=== PATIENT | female | born 1960 | race African-American/Black ===

== ENCOUNTER → 2016-08-12 | Outpatient (CLI) | payer OTHER ==
[~2016-08-12] MED LIST: NAPROSYN500 MG PO; ULTRAM 50MG TAB50 MG PO
== END ==
LOC: RAD 14:12
DX: M79.641 Pain in right hand (principal); Z91.81 History of falling

== ENCOUNTER → 2016-09-23 | Outpatient (CLI) | payer OTHER | LOC: RAD 08:15 | DX: Z12.31 Encounter for screening mammogram for malignant neoplasm of breast (principal) ==

== ENCOUNTER → 2016-10-06 | Outpatient (CLI) | payer OTHER | LOC: RAD 14:34 | DX: R92.8 Other abnormal and inconclusive findings on diagnostic imaging of breast (principal) ==

== ENCOUNTER → 2016-10-29 | Outpatient (CLI) | payer OTHER ==
--- NOTE | ~2016-10-29 | S ---
[facility] [place] [address] SURGICAL PATH RPT PROCEDURE Name: NADEEN JONES Room #: [facility]#: [id number] Admission: 10/29/16 Date of : 56 Discharge: Report #: [id number] Path Case #: [id number] PATHOLOGY REPORT COLLECTION DATE: 10/29/2016 RECEIVED DATE: 10/29/2016 SUBMITTING PHYS: Dr. Lavon Reddy OTHER PHYS: SPECIMEN(S) RECEIVED: A.Left breast biopsy * * * * * * * * * * * * FINAL DIAGNOSIS: Breast, left breast nodule, stereotactic needle core biopsy: - Cystic papillary apocrine metaplasia along with proliferative fibrocystic changes including dilated ducts as well as focal adenosis. - Negative for atypia or malignancy. (IUV:[facility]; 11/01/2016) COMMENT: Co-review: Dr. Marycruz Sam. (IUV:koby; 11/01/2016) PATHOLOGIST: Lorie Tim M.D. REPORT ELECTRONICALLY SIGNED BY: Lorie Tim M.D. DATE/TIME: 11/01/2016 16:50 * * * * * * * * * * * * GROSS PATHOLOGY: Received in formalin labeled "Nadeen Coles," and additionally labeled on the requisition as "left stereotactic biopsy 11 GA" are multiple needle cores of yellow-madrid fibrofatty tissue measuring 2.9 x 4.2 x 0.4 cm in aggregate dimensions. The tissue is submitted in its entirety in cassette A1 through A3. The specimen was collected at 10:05 AM on 10/29/16. The time formalin is 9:50 PM, 10/29/16. The cold ischemic time and total formalin fixation time are not available. (TSD; 10/29/2016) CLINICAL HISTORY: Left breast nodule INITIAL CPT CODE(S): A; 62963 Professional services performed by [facility] at [address] [address] SURGICAL PATH RPT PROCEDURE Name: NADEEN JONES Room #: [facility].#: [id number] Admission: 10/29/16 Date of : 56 Discharge: Report #: [id number] Path Case #: [id number] , [place] [address] Technical services performed by [facility] at [address] [place] [address], [facility] [address] [address]. [facility] [address] [place] [address] PHONE: [phone] DIRECTOR: Geoff Roque M.D. * * * END OF REPORT * * *
== END | disposition home or self-care (01) ==
LOC: RAD 01:13
DX: N60.12 Diffuse cystic mastopathy of left breast (principal); Z88.0 Allergy status to penicillin; Z88.6 Allergy status to analgesic agent

== ENCOUNTER 2017-02-15 13:08 | Emergency (ER) | payer OTHER ==
[~2017-02-15] VITALS: Ht 175.3 cm; Wt 124.7 kg
[2017-02-15] MEDS ORDERED: IBUPROFEN 600600 M1 PO (14:55)
[2017-02-15 15:22] VITALS: BP 194/102
== END 2017-02-15 15:25 | disposition home or self-care (01) ==
LOC: ER 13:08
DX: S80.02XA Contusion of left knee, initial encounter (principal); S60.211A Contusion of right wrist, initial encounter; S50.312A Abrasion of left elbow, initial encounter; S50.311A Abrasion of right elbow, initial encounter; Z88.0 Allergy status to penicillin; Z88.5 Allergy status to narcotic agent; W01.0XXA Fall on same level from slipping, tripping and stumbling without subsequent striking against object, initial encounter; Y93.89 Activity, other specified; Y92.89 Other specified places as the place of occurrence of the external cause; Y99.8 Other external cause status

== ENCOUNTER → 2017-03-22 | Outpatient (CLI) | payer BC ==
[~2017-03-22] MED LIST changes: +IBUPROFEN 600600 M1 PO
== END ==
LOC: ULTRA 07:27
DX: I65.23 Occlusion and stenosis of bilateral carotid arteries (principal); R09.89 Other specified symptoms and signs involving the circulatory and respiratory systems

== ENCOUNTER → 2017-05-16 | Outpatient (CLI) | payer OTHER | LOC: MRI 08:02 | DX: M47.26 Other spondylosis with radiculopathy, lumbar region (principal); M48.061 Spinal stenosis, lumbar region without neurogenic claudication ==

== ENCOUNTER → 2017-05-18 | Outpatient (CLI) | payer BC | LOC: RAD 14:21 | DX: R92.8 Other abnormal and inconclusive findings on diagnostic imaging of breast (principal) ==

== ENCOUNTER → 2017-06-02 | Outpatient (CLI) | payer BC | LOC: MRI 12:21 | DX: I70.8 Atherosclerosis of other arteries (principal); E04.1 Nontoxic single thyroid nodule; M25.512 Pain in left shoulder; R09.89 Other specified symptoms and signs involving the circulatory and respiratory systems ==

== ENCOUNTER → 2017-09-27 | Outpatient (CLI) | payer BC, OTHER | LOC: RAD 14:02 | DX: Z12.31 Encounter for screening mammogram for malignant neoplasm of breast (principal) ==

== ENCOUNTER 2018-05-03 15:46 | Emergency (ER) | payer OTHER ==
[~2018-05-03] VITALS: Ht 175.3 cm; Wt 127.0 kg
[2018-05-03 16:39] LABS: URINE BLOOD 1+ (Negative); URINE CLARITY CLEAR; URINE COLOR YELLOW; URINE GLUCOSE-RANDOM* NEGATIVE (Negative); URINE KETONES 1+ (Negative); URINE LEUKOCYTES-REFLEX NEGATIVE (Negative); URINE NITRITE-REFLEX NEGATIVE (Negative); URINE PROTEIN (DIPSTICK) 1+ (Negative); URINE SPECIFIC GRAVITY >= 1.030 (1.005-1.035)
[2018-05-03 16:40] LABS: ICTOTEST (BILI CONFIRMATORY) Negative (Negative); URINE BILIRUBIN NEGATIVE (Negative)
[2018-05-03 16:47] LABS: SQUAMOUS 4-10 Moderate /LPF (0-3)
[2018-05-03 16:48] LABS: MUCUS 4-6 Moderate strn/LPF (None Seen); URINE WBC-REFLEX 0-5 Rare /HPF (0-5)
[2018-05-03 16:48] LABS: ABSOLUTE NEUTROPHILS 3.6 thou/uL (1.4-8.2); BASOPHILS 0.9 % (0.0-2.0); HEMATOCRIT 38.2 % (37.0-47.0); HEMOGLOBIN 12.6 gm/dL (12.0-15.0); LYMPHOCYTES 29.3 % (24.0-44.0); MCH 28.1 pg (26.0-34.0); MCHC 32.9 g/dL (28.0-37.0); MCV 85.5 fL (80.0-100.0); MONOCYTES 8.9 % (1.0-8.0); PLATELET COUNT 249 thou/uL (150-400); POLYS 59.9 % (36.0-66.0); RBC 4.46 mil/uL (4.20-5.00); RDW 14.9 % (10.5-14.5); WBC 5.9 thou/uL (4.0-11.0)
[2018-05-03 16:49] LABS: BACTERIA-REFLEX 1-9 Few /HPF (None Seen); CASTS None Seen /LPF (None Seen); CRYSTALS None Seen /LPF (None Seen); URINE RBC 3-10 Few /HPF (0-2)
[2018-05-03 17:04] LABS: CALCIUM 9.8 mg/dL (8.5-10.1); CREATININE 1.1 mg/dL (0.6-1.0); POTASSIUM 3.3 mmol/L (3.5-5.1)
[2018-05-03 17:09] LABS: ALBUMIN 4.1 g/dL (3.4-5.0); TOTAL PROTEIN 7.7 g/dL (6.4-8.2)
[2018-05-03] MEDS ORDERED: TRAMADOL 50 MG50 MG PO (19:59)
[2018-05-03] MEDS ORDERED: NAPROSYN500 MG PO (19:59)
[2018-05-03 20:18] VITALS: BP 166/86
--- NOTE | 2018-05-04 16:37 | EKG ---
[address] [address] ELECTROCARDIOGRAM REPORT Name: GARRETT JONES Room #: [facility]#: [id number] ������������������ Admission: 05/03/18 ������������������ Attend Phys: Discharge: 05/03/18 ������������������ Date of : 56 Report #: [id number] ����������������������������������������������������������������� [id number] THIS REPORT FOR: //name// [facility] ED Test Date: 2018-05-03 Test Time: 19:37:53 Pat Name: GARRETT HARRELL QUETA Department: Room: Gender: F Electronic Industrial Controls Mechanic: [place] : 1960 Requested By: Renny Munoz Order Number: [id number] MD: Kareem Cruz Measurements Intervals [place] Rate: 54 P: 51 WV: 195 QRS: 12 QRSD: 108 T: 147 QT: 469 QTc: 445 Interpretive Statements Sinus rhythm Abnormal T, consider ischemia, lateral leads Compared to ECG 05/24/2012 09:23:38 Possible ischemia now present T-wave abnormality still present Electronically Signed On 05-04-2018 16:37:03 KAPOK MACHINE OPERATOR by Kareem Cruz [email or web address] ��������������������������������������������� <ELECTRONICALLY SIGNED> ���������������������������������������� By: Kareem Cruz MD ��������������������������������������������� 05/04/181636 36 36 Kareem Cruz MD /EPI
== END 2018-05-03 20:18 | disposition home or self-care (01) ==
LOC: ER 15:46
PROVIDERS: Emergency Medicine
DX: N83.202 Unspecified ovarian cyst, left side (principal); N95.0 Postmenopausal bleeding; R06.00 Dyspnea, unspecified; Z88.0 Allergy status to penicillin; Z88.5 Allergy status to narcotic agent

== ENCOUNTER → 2018-06-01 | Outpatient (CLI) | payer OTHER ==
[~2018-06-01] MED LIST changes: +TRAMADOL 50 MG50 MG PO
== END ==
LOC: ULTRA 07:24
DX: N83.292 Other ovarian cyst, left side (principal); N83.8 Other noninflammatory disorders of ovary, fallopian tube and broad ligament; Z78.0 Asymptomatic menopausal state; Z90.722 Acquired absence of ovaries, bilateral

== ENCOUNTER 2018-12-23 09:06 | Emergency (ER) | payer OTHER ==
[~2018-12-23] VITALS: Ht 180.3 cm; Wt 99.8 kg
[2018-12-23 10:47] LABS: ABSOLUTE NEUTROPHILS 3.5 thou/uL (1.4-8.2); BASOPHILS 0.9 % (0.0-2.0); EOSINOPHILS 1.7 % (0.0-3.0); HEMATOCRIT 38.1 % (37.0-47.0); HEMOGLOBIN 12.3 gm/dL (12.0-15.0); LYMPHOCYTES 28.4 % (24.0-44.0); MCH 28.7 pg (26.0-34.0); MCHC 32.3 g/dL (28.0-37.0); MCV 88.8 fL (80.0-100.0); PLATELET COUNT 267 thou/uL (150-400); RDW 14.7 % (10.5-14.5); WBC 5.7 thou/uL (4.0-11.0)
[2018-12-23 10:53] LABS: ANION GAP 6 mmol/L (7-16); BUN 13 mg/dL (7-18); CALCIUM 9.7 mg/dL (8.5-10.1); CHLORIDE 107 mmol/L (98-107); CO2 29 mmol/L (21-32); GLUCOSE 94 mg/dL (74-106); POTASSIUM 3.7 mmol/L (3.5-5.1); SODIUM 142 mmol/L (136-145)
[2018-12-23 11:03] LABS: ALBUMIN 3.9 g/dL (3.4-5.0); MAGNESIUM 2.2 mg/dL (1.8-2.4); SGOT 16 U/L (15-37); SGPT 15 U/L (30-65); TOTAL BILIRUBIN 1.1 mg/dL (<0.1-1.0); TOTAL PROTEIN 7.3 g/dL (6.4-8.2); TROPONIN-I <0.06 ng/mL (<0.06)
[2018-12-23 12:17] LABS: URINE BILIRUBIN NEGATIVE (Negative); URINE BLOOD NEGATIVE (Negative); URINE CLARITY CLEAR; URINE COLOR YELLOW; URINE GLUCOSE-RANDOM* NEGATIVE (Negative); URINE KETONES NEGATIVE (Negative); URINE LEUKOCYTES-REFLEX NEGATIVE (Negative); URINE NITRITE-REFLEX NEGATIVE (Negative); URINE PROTEIN (DIPSTICK) NEGATIVE (Negative); URINE UROBILINOGEN 0.2 E.U./dl (0.2-1.0)
[2018-12-23 12:31] VITALS: BP 170/86
--- NOTE | 2018-12-24 11:38 | EKG ---
[address] [place] [address] ELECTROCARDIOGRAM REPORT Name: GARRETT JONES Room #: [facility]#: [id number] Admission: 12/23/18 Attend Phys: Discharge: 12/23/18 Date of : 56 Report #: [id number] THIS REPORT FOR: //name// [facility] ED Test Date: 2018-12-23 Test Time: 10:25:19 Pat Name: GARRETT BIRCH Department: Room: Gender: F Nuclear Medicine Specialist: : 1960 Requested By: Diego Velasquez Order Number: [id number] MD: Freddy Alfonso Measurements Intervals [place] Rate: 50 P: 44 OK: 207 QRS: 10 QRSD: 92 T: 160 QT: 452 QTc: 413 Interpretive Statements Sinus rhythm Borderline prolonged OK interval Nonspecific T abnormalities, lateral leads Compared to ECG 05/03/2018 19:37:53 Possible ischemia no longer present T-wave abnormality still present Electronically Signed On 12-24-2018 11:38:05 CDT by Freddy Alfonso [email or web address] <ELECTRONICALLY SIGNED> By: Freddy Alfonso MD 12/24/18 1138 1025 1025 Freddy Alfonso MD /PONCE
== END 2018-12-23 12:34 | disposition home or self-care (01) ==
LOC: ER 09:06
PROVIDERS: Emergency Medicine
DX: M54.2 Cervicalgia (principal); Z88.5 Allergy status to narcotic agent; Z88.0 Allergy status to penicillin

== ENCOUNTER → 2019-09-10 | Outpatient (CLI) | payer OTHER | LOC: LAB 08:33 | PROVIDERS: ATTEND Hospitalist | DX: Z01.812 Encounter for preprocedural laboratory examination (principal); Z11.59 Encounter for screening for other viral diseases ==

== ENCOUNTER 2021-01-31 09:02 | Inpatient (IN) | payer OTHER ==
[~2021-01-31] VITALS: Ht 177.8 cm; Wt 78.0 kg
[2021-01-31 09:07] VITALS: BP 142/88
[2021-01-31 09:38] LABS: ABSOLUTE NEUTROPHILS 2.1 thou/uL (1.4-8.2); BASOPHILS 0.4 % (0.0-2.0); HEMATOCRIT 34.8 % (37.0-47.0); HEMOGLOBIN 11.4 gm/dL (12.0-15.0); LYMPHOCYTES 19.9 % (24.0-44.0); MCH 28.2 pg (26.0-34.0); MCHC 32.6 g/dL (28.0-37.0); MCV 86.3 fL (80.0-100.0); MONOCYTES 13.8 % (1.0-8.0); PLATELET COUNT 166 thou/uL (150-400); POLYS 65.9 % (36.0-66.0); RBC 4.03 mil/uL (4.20-5.00); WBC 3.2 thou/uL (4.0-11.0)
[2021-01-31 09:43] LABS: CALCIUM 8.3 mg/dL (8.5-10.1); CREATININE 1.3 mg/dL (0.6-1.0); POTASSIUM 3.1 mmol/L (3.5-5.1)
[2021-01-31 09:53] LABS: ALBUMIN 3.6 g/dL (3.4-5.0); TOTAL BILIRUBIN 0.6 mg/dL (0.2-1.0); TOTAL PROTEIN 6.9 g/dL (6.4-8.2)
[2021-01-31 11:16] LABS: URINE BLOOD NEGATIVE (Negative); URINE CLARITY CLEAR; URINE COLOR YELLOW; URINE GLUCOSE-RANDOM* NEGATIVE (Negative); URINE KETONES TRACE (Negative); URINE LEUKOCYTES-REFLEX NEGATIVE (Negative); URINE NITRITE-REFLEX NEGATIVE (Negative); URINE PROTEIN (DIPSTICK) TRACE (Negative)
[2021-01-31 11:23] LABS: ICTOTEST (BILI CONFIRMATORY) Negative (Negative); URINE BILIRUBIN NEGATIVE (Negative)
[2021-01-31 13:43] VITALS: BP 126/65
[2021-01-31 13:59] VITALS: BP 130/57; BP 158/88
--- NOTE | 2021-01-31 19:46 | NUR ---
RN ADIMITTED THIS PT FROM ER FOR COVID PHEUMONIA, PT IS A&OX4, PT IS ON ROOM AIR, PT'S VS ARE STABLE AT DAY SHIFT, PT HAS STARTED IV ABX, AND TREAT COVID MEDICATIONS, PT 'S ABD PAIN AND N/V HAVE IMPROVED, ID HAS CONSULT.
[2021-01-31 21:00] VITALS: BP 133/67
[2021-02-01 00:11] VITALS: BP 117/69
[2021-02-01 04:41] VITALS: BP 143/68
--- NOTE | 2021-02-01 05:20 | NUR ---
PROGRESS PT A/O X4. UP AD JODY. LUNGS CLEAR ABDOMEN SOFT WITH SOME TENDERNESS RIGHT UPPER QUADRANT. REPORTS LEFT SHOULDER PAIN AT A LEVEL OF 5 DENIES NEED FOR MEDICATION BUT STATES IT HURTS WORSE THAN HER ABDOMEN. MAGNO BARTLETT DIRECTOR OF FAMILY SERVICE CENTER NOTIFIED AND SHE ORERED A 2 VIEW LEFT SHOULDER XRAY TO BE COMPLETED IN AM. PT SLEPT ON AND OFF BUT IT ANXIOUS ABOUT HER DIAGNOSIS SO HAD A LITTLE DIFFICULTY SLEEPING VSS TELEMETRY INTACT READING SA/SR WITH RATES IN THE 70'S TO 80'S.
[2021-02-01 06:10] LABS: CALCIUM 8.4 mg/dL (8.5-10.1); CREATININE 1.1 mg/dL (0.6-1.0); POTASSIUM 3.8 mmol/L (3.5-5.1)
[2021-02-01 08:40] VITALS: BP 145/82
[2021-02-01 11:25] VITALS: BP 140/75
[2021-02-01 12:55] VITALS: BP 140/75
[2021-02-01 19:07] VITALS: BP 145/78
--- NOTE | 2021-02-01 19:34 | NUR ---
PT ALERT AND ORIENTED X 4. PT COMPLAINS OF PAIN IN L SHOULDER. PAIN IN ABDOMEN IMPROVED. PT CONTINUE IV ANTIBIOTICS AND COVID ISOLATION. VITAL SIGNS STABLE. PT DENIES NEEDS AT THE MOMENT, WILL CONTINUE TO MONITOR.
--- NOTE | 2021-02-01 23:50 | NUR ---
PROGRESS PT A/O X4. LUNGS CLEAR NO COUGING NOTED, ON ROOM AIR. AFEBRILE, VSS. TELEMETRY INTACT READING SA/SB WITH RATES IN THE 40'S TO 50'S. ABDOMEN SOFT WITH POSITIVE BS. VOIDING QS AND NO BM TODAY. PT REPORTS SOME MILD LEFT SHOULDER, AND ABDOMINAL PAIN BUT DENIES THE NEED FOR MEDICATION, DICLOFENAC CREAM OFFERED. SALINE LOCK TO RAC IN PLACE FLUSHED WITHOUT DIFFICULTY. PLAN IS TO DISCHARGE HOME TOMORROW.
[2021-02-02 05:00] VITALS: BP 146/76
[2021-02-02 07:19] VITALS: BP 146/59
--- NOTE | 2021-02-02 07:24 | HC ---
[facility] [place] [address] CONSULTATION Name: GARRETT JONES Room #: 352-P ADM IN ..#: [id number] Admission: 01/31/21 Attend Phys: Rona Adams Discharge: Date of : 56 Report #: [id number] THIS REPORT FOR: cc: Ira Carrasco MD, Nora P. MD Barry, Joseph W. MD ~ DATE OF SERVICE: 02/01/2021 INFECTIOUS DISEASE CONSULTATION ATTENDING PHYSICIAN: Dr. Adams. REASON FOR EVALUATION: COVID-19 infection. HISTORY OF PRESENT ILLNESS: Chart reviewed. The patient examined. This is a 60-year-old woman without significant medical history, who works at the hospital, is experiencing some abdominal pain with nausea primarily in left upper quadrant. She noted it started 24 hours prior to her presentation in the Emergency Room yesterday and became progressively worse. Apparently, had not had any emesis, chest pain or dyspnea, evaluation was undertaken and have leukopenia and mild anemia. Chest x-ray showed patchy bilateral pulmonary opacities. CT of the abdomen and pelvis showed a right-sided heterogeneous exophytic mass on the inferior pole of the kidney. Did have a positive coronavirus testing as well. Urinalysis was generally unrevealing. It is not clear whether she had any significant fevers or chills. Denies dyspnea. She was empirically started on levofloxacin for presumed pulmonary related complaints or infection. ALLERGIES: PENICILLINS AND CODEINE. CURRENT MEDICATIONS: Include enoxaparin, levofloxacin, dexamethasone, tramadol, acetaminophen, nitroglycerin. PAST MEDICAL HISTORY: Otherwise, unrevealing. SOCIAL HISTORY: Works here at the hospital. She is a former smoker. No illicit drug use. No ethanol. FAMILY HISTORY: Noncontributory. REVIEW OF SYSTEMS: Otherwise, unremarkable with the exception of the above. PHYSICAL EXAMINATION: GENERAL: She is alert, cooperative, appropriate. She is not encephalopathic. She appears reasonably well nourished. VITAL SIGNS: T-max 99.5, more recently 97.2; pulse 47; respirations 18; blood [facility] [address] [place] [address] CONSULTATION Name: GARRETT JONES Room #: 352-P [facility].#: [id number] Admission: 01/31/21 Attend Phys: Rona Adams Discharge: Date of : 56 Report #: [id number] pressure 143/68. SKIN: Warm, dry. No rashes. HEENT: Normocephalic. Extraocular muscles intact. NECK: Supple. LUNGS: Few scattered crackles at the bases. HEART: Borderline bradycardic. I do not appreciate a murmur. ABDOMEN: Did not elicit any tenderness, but she describes burning. There is no hyper-cutaneous related sensitivity. GENITOURINARY AND RECTAL: Deferred. LABORATORY DATA: Electrolytes: Sodium 140, potassium 3.8, chloride 105, bicarbonate is 29, anion gap of 6, BUN and creatinine 16 and 1.1, glucose of 123. D-dimer is 0.36. Urinalysis unremarkable. IMAGING: As noted above. CBC: White count of 3.2, H and H 11.4 and 34.8, platelets 166. ASSESSMENT AND PLAN: COVID-19 infection, complicated by mild pneumonitis, not requiring supplemental oxygen. At this point, I think it is reasonable to continue with the corticosteroids. We will add some vitamins, hold off on the remdesivir at this point. In terms of the pain, certainly I do not correlate with the right-sided renal lesion, burning type character makes me wonder if this may be early zoster. We will continue to monitor for evidence of dermatomal eruption. In the event of any clinical deterioration, would initiate antiviral therapy, consider monoclonal antibody as well. <ELECTRONICALLY SIGNED> By: Micky Loyd MD 02/02/21 0724 0744 0854 Micky Loyd MD /nt
--- NOTE | 2021-02-02 07:35 | EKG ---
[address] [place] [address] ELECTROCARDIOGRAM REPORT Name: GARRETT JONES Room #: 352-P [facility] IN ..#: [id number] Admission: 01/31/21 Attend Phys: Rona Adams Discharge: Date of : 56 Report #: [id number] [facility] ED Test Date: 2021-01-31 Test Time: 09:04:30 Pat Name: GARRETT BIRCH Department: Room: [facility] Gender: F Complaint Inspector: HUGO : 1960 Requested By: Karri Stevens Order Number: [id number] MD: Arun Franco Measurements Intervals [place] Rate: 63 P: 52 VA: 203 QRS: 33 QRSD: 92 T: 170 QT: 406 QTc: 416 Interpretive Statements Sinus rhythm Anteroseptal infarct, old Borderline repolarization abnormality Compared to ECG 12/23/2018 10:25:19 Myocardial infarct finding now present T-wave abnormality no longer present Electronically Signed On 02-02-2021 7:35:14 REMOTELY PILOTED VEHICLE CONTROLLER by Arun Franco [email or web address] <ELECTRONICALLY SIGNED> By: Arun Franco MD, [facility] 02/02/21 0735 3 3 Arun Franco MD, FAC /EPI
[2021-02-02] MEDS ORDERED: LEVOFLOXACIN500 MG PO (09:28)
[2021-02-02] MEDS ORDERED: ARTHRITIS PAIN100 GM TOP (09:28)
[2021-02-02] MEDS ORDERED: DECADRON6 MG PO (09:29)
[2021-02-02] MEDS ORDERED: ASPIRIN EC325 M1 PO (09:29)
[2021-02-02 11:26] VITALS: BP 139/78
[2021-02-02 12:21] LABS: URINE BILIRUBIN NEGATIVE (Negative); URINE BLOOD NEGATIVE (Negative); URINE CLARITY CLEAR; URINE COLOR YELLOW; URINE GLUCOSE-RANDOM* NEGATIVE (Negative); URINE KETONES NEGATIVE (Negative); URINE LEUKOCYTES-REFLEX NEGATIVE (Negative); URINE NITRITE-REFLEX NEGATIVE (Negative); URINE PROTEIN (DIPSTICK) NEGATIVE (Negative); URINE SPECIFIC GRAVITY 1.025 (1.005-1.035)
[2021-02-02 16:20] VITALS: BP 145/73
[2021-02-02 19:20] VITALS: BP 114/70
--- NOTE | 2021-02-02 19:42 | NUR ---
RN ASSUMED PT'S CARE AT 0700-1900PM, PT IS A&0X4, RN REPORTED TO HOSPITAL DR ABOUT PT'S FEVER AND ABD PAIN, NEW ORDER RECEIVED AT MORNING , PT'S FEVER AND ABD PAIN HAVE IMPROVED , PT IS CONTINUING IV ABX AND TREAT COVID MEDICATIONS,
[2021-02-03 04:35] VITALS: BP 110/61
--- NOTE | 2021-02-03 05:15 | NUR ---
PROGRESS PT A/O X4. UP AD JODY. LOW GRADE TEMP OF 101.5 NOTED ON VITALS ASSESSMENT TYLENOL GIVEN WITH EFFECT. PT SLEPT MOST OF SHIFT DENIED PAIN OR NEED FOR PAIN MEDICATION. LUNGS CLEAR PT HAS A DRY INFREQUENT COUGH ON ROOM AIR. VOIDING QS. STARTED REMDESIVIR TODAY TOLERATED WITHOUT DIFFICULTY. TELEMETRY INTACT READING SA/SB WITH RATES IN THE 40'S TO 50'S. SLEPT MOST OF SHIFT. UROLOGY TO F/U AN OUTPATIENT. CONTINUE POC.
[2021-02-03 05:53] LABS: ALBUMIN 2.8 g/dL (3.4-5.0); ANION GAP 9 mmol/L (7-16); BUN 15 mg/dL (7-18); CALCIUM 8.3 mg/dL (8.5-10.1); CHLORIDE 97 mmol/L (98-107); CO2 27 mmol/L (21-32); DIRECT BILIRUBIN < 0.1 mg/dL (<0.1-0.2); GLUCOSE 88 mg/dL (74-106); PHOSPHORUS 3.9 mg/dL (2.5-4.9); POTASSIUM 3.5 mmol/L (3.5-5.1); SGOT 22 U/L (15-37); SGPT 17 U/L (30-65); SODIUM 133 mmol/L (136-145); TOTAL BILIRUBIN 0.3 mg/dL (0.2-1.0); TOTAL PROTEIN 6.7 g/dL (6.4-8.2)
[2021-02-03 07:28] VITALS: BP 140/73
--- NOTE | 2021-02-03 14:02 | EKG ---
[address] [place] [address] ELECTROCARDIOGRAM REPORT Name: GARRETT JONES Room #: 352- ADM IN ..#: [id number] Admission: 01/31/21 Attend Phys: Rona Adams Discharge: Date of : 56 Report #: [id number] [facility] Test Date: 2021-02-03 Test Time: 09:19:33 Pat Name: GARRETT BIRCH Department: Room: [facility] Gender: F Sign Maintenance: MARCELINO : 1960 Requested By: Rona Adams Order Number: [id number] MD: Arun Franco Measurements Intervals [place] Rate: 56 P: 62 TN: 214 QRS: 43 QRSD: 90 T: -78 QT: 421 QTc: 407 Interpretive Statements Sinus rhythm Ventricular premature complex Nonspecific T abnormalities, diffuse leads Compared to ECG 01/31/2021 09:04:30 Ventricular premature complex(es) now present T-wave abnormality now present Myocardial infarct finding no longer present Electronically Signed On 02-03-2021 14:02:16 ER MANAGER by Arun Franco [email or web address] <ELECTRONICALLY SIGNED> By: Arun Franco MD, FACC 02/03/21 1402 8 8 Arun Franco MD, FACC /EPI
[2021-02-03 15:25] VITALS: BP 123/66
--- NOTE | 2021-02-03 16:22 | NUR ---
INITIAL ASSESSMENT: SW reviewed chart and spoke with nursing and attending physician. Pt was admitted from home due to abdominal pain. Pt had positive COVID test in the ER. Pt placed in Enhanced Isolation. Pt has not received a COVID vaccination. Pt was febrile yesterday. Not requiring O2. Pt is on IV meds and Remdesivir. Urology consulted. Pt is alert/orientated x 4. Pt works at [employer] in [place]. Pt is normally independent with ADLs. No use of DME. PCP is Dr. Ira Carrasco. Plan is for pt to discharge home when medically stable. SW is following to assist as needed with discharge planning.
[2021-02-03 17:56] VITALS: BP 123/66
--- NOTE | 2021-02-03 18:01 | NUR ---
PT ALERT AND ORIENTED X 4. PT COMPLAINED OF CHEST PAIN EARLY IN SHIFT. GAVE PT NITRO PER DR ORDERS FOR CHEST PAIN. PT COMPLAINED OF DIZZINESS, JAW PAIN, AND SHOOTING PAIN IN LEFT ARM AFTERWARD. PT REFUSED NITRO AFTER FIRST DOSE, SAYING NITRO "MADE ME WORSE AFTER THE FIRST DOSE". PT ALSO REFUSED PAIN MEDICATION. EKG WAS NORMAL AND DR WAS INFORMED. PT COMPLAINED OF MILD SHOULDER PAIN THROUGHOUT SHIFT, BUT CONTINUED TO REFUSE MEDICATION. PT HAS LITTLE APPETITE, EATING VERY LITTLE. PT HAS NO NEEDS AT THE MOMENT, WILL CONTINUE TO MONITOR.
[2021-02-03 19:52] VITALS: BP 140/75
[2021-02-04 04:55] VITALS: BP 137/78
--- NOTE | 2021-02-04 06:40 | NUR ---
PT IS A&OX4 AND ABLE TO COMMUNICATE WANTS AND NEEDS TO STAFF. REMAINS ON ISOLATION AFTER TESTING POSITIVE FOR COVID-19. SHE IS ON ROOM AIR WITH O2 SATS >95%. SHE IS UP AD JODY TO THE BR WITH SBA/SUPERVISION. PT COMPLAINED OF PAIN IN HER LEFT SHOULDER AND ACROSS HER ABDOMEN, RATED 7/10, BUT REPEATEDLY DECLINED PAIN MEDICATION WHEN OFFERED, STATING THAT "IT DOESN'T DO ANYTHING ANYWAY." SINUS DANIELLE ON CARDIAC MONITORING, ASYMPTOMATIC. LOW GRADE TEMP OF 99.1 NOTED THIS SHIFT. WILL CONTINUE TO OBSERVE FOR CHANGES
[2021-02-04 06:48] LABS: ALBUMIN 2.7 g/dL (3.4-5.0); ANION GAP 7 mmol/L (7-16); BUN 13 mg/dL (7-18); CALCIUM 8.2 mg/dL (8.5-10.1); CHLORIDE 99 mmol/L (98-107); CO2 28 mmol/L (21-32); DIRECT BILIRUBIN < 0.1 mg/dL (<0.1-0.2); GLUCOSE 100 mg/dL (74-106); PHOSPHORUS 3.8 mg/dL (2.5-4.9); POTASSIUM 3.5 mmol/L (3.5-5.1); SGOT 18 U/L (15-37); SGPT 12 U/L (30-65); SODIUM 134 mmol/L (136-145); TOTAL BILIRUBIN 0.3 mg/dL (0.2-1.0); TOTAL PROTEIN 6.5 g/dL (6.4-8.2)
[2021-02-04 07:26] VITALS: BP 147/77
[2021-02-04 10:49] LABS: HEMATOCRIT 36.4 % (37.0-47.0); HEMOGLOBIN 11.5 gm/dL (12.0-15.0); MCH 27.8 pg (26.0-34.0); MCHC 31.7 g/dL (28.0-37.0); MCV 87.6 fL (80.0-100.0); RBC 4.15 mil/uL (4.20-5.00); RDW 14.3 % (10.5-14.5); WBC 3.7 thou/uL (4.0-11.0)
[2021-02-04 16:01] VITALS: BP 129/81
--- NOTE | 2021-02-04 16:19 | NUR ---
SW reviewed chart and spoke with nursing and attending physician. Pt remains in Enhanced Isolation due to COVID. Pt is afebrile and not requiring O2. Pt is on IV meds and Remdesivir. GI consulted. Pt may need to have an EGD/colonoscopy prior to discharge. Should pt be ready for discharge home over the holiday weekend, there are no discharge needs anticipated. SW is available to assist should needs arise.
[2021-02-04 19:30] VITALS: BP 157/78
--- NOTE | 2021-02-04 19:34 | NUR ---
PT IS PROGRESSING TOWARDS DISCHARGE, MEDICATION LEVSIN ORDERED FOR NAUSEA, PT HAS NOT CALLED OUT MUCH THIS SHIFT, WAS SEEN WATCHING/DISTRACTING SELF WITH TV. COMPLAINTS OF NAUSEA AT THE EARLY PARTS OF THE DAY, STATING ASSOCIATION WITH THE VITAMINS, MD LOCKETT MADE KNOWN, GI SAW THE PATIENT, LEVSIN ORDERED. NEW IV STARTED BY SHERI SHAH. REMDESEVIR WAS GIVEN, NO COMPLAINTS FROM THE PATIENT AT THIS TIME. PER PT, PT IS "HIGHLY FAVORED AND BLESSED"
[2021-02-05 04:05] VITALS: BP 146/80
--- NOTE | 2021-02-05 05:14 | NUR ---
PT IS A&OX4 AND ABLE TO MAKE WANTS AND NEEDS KNOWN TO STAFF. SHE IS SLOWLY PROGRESSING TOWARD HER GOAL OF DISCHARGE. CONTINUES ON ISOLATION FOR COVID-19. PRODUCTIVE COUGH NOTED THIS SHIFT WITH THICK YELLOW SPUTUM. SHE DOES NOT APPEAR IN DISTRESS, HOWEVER, AND HAS REQUIRED NO SUPPLEMENTAL OXYGEN, MAINTAINING O2 SATS >95% ON ROOM AIR. SHE IS UP TO BR AD JODY. PT HAS C/O CHRONIC PAIN, DENIES OFFERED PAIN MEDICATION. WILL CONTINUE TO OBSERVE FOR CHANGES
[2021-02-05 06:02] LABS: HEMATOCRIT 34.3 % (37.0-47.0); HEMOGLOBIN 11.4 gm/dL (12.0-15.0); MCH 28.7 pg (26.0-34.0); MCHC 33.3 g/dL (28.0-37.0); MCV 86.4 fL (80.0-100.0); RBC 3.97 mil/uL (4.20-5.00); RDW 14.3 % (10.5-14.5); WBC 2.6 thou/uL (4.0-11.0)
[2021-02-05 06:38] LABS: ALBUMIN 2.6 g/dL (3.4-5.0); CALCIUM 8.2 mg/dL (8.5-10.1); CREATININE 0.9 mg/dL (0.6-1.0); DIRECT BILIRUBIN 0.1 mg/dL (<0.1-0.2); PHOSPHORUS 3.6 mg/dL (2.5-4.9); POTASSIUM 3.4 mmol/L (3.5-5.1); TOTAL BILIRUBIN 0.4 mg/dL (0.2-1.0); TOTAL PROTEIN 6.3 g/dL (6.4-8.2)
[2021-02-05 07:37] VITALS: BP 159/84
[2021-02-05 15:30] VITALS: BP 145/81
[2021-02-05 19:55] VITALS: BP 140/80
--- NOTE | 2021-02-06 00:46 | NUR ---
UPON SHIFT ASSESSMENT, PT AOX4. PT DENIES PAIN AND SOB WHILE ON ROOM AIR. PT WITH CONGESTED COUGH WITH SMALL PRODUCTION OF LIGHT YELLOW SPUTUM. PT HAS PRN PO TRAMADOL Q4HR AND PRN APAP Q4HR AVAILABLE. PT TOLERATING PO INTAKE OF FLUIDS AND REGULAR DIET WITHOUT ISSUE. PT WITHOUT NAUSEA OR EMESIS. PT AMBULATING INDEPENDENTLY IN ROOM AND VOIDING IN BATHROOM, RESTING IN BED OTHERWISE. FREQUENT REPOSITIONING ENCOURAGED WHILE IN BED, PT NOTED TO SHIFT INDEPENDENTLY. SENSATION INTACT, CAPILLARY REFILL LESS THAN 3SEC, PERIPHERAL PULSES PALPABLE IN ALL EXTREMITIES. PT ENCOURAGED TO NOTIFY STAFF FOR ALL NEEDS, CALL LIGHT WITHIN REACH, BED LOCKED IN LOWEST POSITION, FREQUENT MONITORING WILL CONTINUE, PT TO BE MAINTAINED ON ENHANCED PRECAUTIONS FOR COVID-19.
[2021-02-06 04:20] VITALS: BP 157/90
[2021-02-06 05:54] LABS: HEMATOCRIT 35.4 % (37.0-47.0); HEMOGLOBIN 11.6 gm/dL (12.0-15.0); MCH 28.3 pg (26.0-34.0); MCHC 32.6 g/dL (28.0-37.0); MCV 86.7 fL (80.0-100.0); RBC 4.09 mil/uL (4.20-5.00); RDW 14.1 % (10.5-14.5); WBC 3.6 thou/uL (4.0-11.0)
[2021-02-06 06:17] LABS: ALBUMIN 2.6 g/dL (3.4-5.0); ANION GAP 5 mmol/L (7-16); BUN 16 mg/dL (7-18); CALCIUM 8.2 mg/dL (8.5-10.1); CHLORIDE 102 mmol/L (98-107); CO2 29 mmol/L (21-32); CREATININE 0.9 mg/dL (0.6-1.0); DIRECT BILIRUBIN < 0.1 mg/dL (<0.1-0.2); GLUCOSE 103 mg/dL (74-106); POTASSIUM 3.8 mmol/L (3.5-5.1); SGOT 16 U/L (15-37); SGPT 14 U/L (30-65); SODIUM 136 mmol/L (136-145); TOTAL BILIRUBIN 0.3 mg/dL (0.2-1.0); TOTAL PROTEIN 6.3 g/dL (6.4-8.2)
[2021-02-06 07:18] VITALS: BP 148/83
[2021-02-06] MEDS ORDERED: DULCOLAX5 MG PO (09:51)
[2021-02-06] MEDS ORDERED: MIRALAX17 GM PO (09:51)
[2021-02-06] MEDS ORDERED: CEFUROXIME500 MG PO (09:52)
[2021-02-06 11:42] VITALS: BP 133/82
--- NOTE | 2021-02-06 12:02 | NUR ---
WAS NOTIFIED BY PT'S NURSE (NORMA) THAT PT IS DISCHARGING TODAY AND PT WAS HESISTANT TO DC BACK TO THE [facility] THAT SHE IS STAYING IN CAUSE SHE THINKS SHE MIGHT HAVE GOTTEN COVID FROM THERE. i, SPOKE WITH METAL ROLLING MILL OPERATOR CORINNA LAU AND SHE SAID IF DR'S FEEL PT IS GOOD TO DISCHARGE THEN SHE SHOULD DC BACK TO [facility] AND TO LET PT KNOW THAT WITH THE TX SHE HAS RECEIVED AT HOSPITAL STAY HER IMMUNE SHOULD BE STRONGER AND TO F/U WITH HER PHYSICIAN AFTER DC. I, SPOKE WITH PT AND RELAYED THE INFORMATION TO HER AND SHE IS IN AGREEMENT FOR DC. NO OTHER NEEDS NEEDED.
[2021-02-06 14:32] VITALS: BP 133/82
--- NOTE | 2021-02-06 19:59 | NUR ---
RN ASSUMED PT'S CARE AT 0700-1730PM,PT IS A&OX4, PT'S ABD PAIN AND N/V HAVE IMPROVED, PT'S VS ARE STABLE, PT DENIES PAIN AND SOB, RN RECEIVED ORDER TO DC PT TO HOME, PT UNDERSTANDS DC TEACHING WELL , INCLUDING NEW MEDICATIONS AND COVID ISOLATION TO 02/21/21 . PT WAS GOING HOME AT 1730PM.
--- NOTE | 2021-02-07 09:12 | NUR ---
RECEIVED CALL FROM 3W NURSE WILDA SHE WAS HELPING NORMA RN THEY RECEIVED A CALL FROM PT THAT IT TOOK HER 5 HRS TO FIND [facility] SHOWED UP THERE AT [address] AND THEY TOLD HER THAT SHE WOULD NEED TO GET OUT OF LINE AND COME IN AND THAT THEY DIDN'T KNOW ABOUT THE SCRIPTS. SO, SHE SAID BY THE TIME SHE GOT BACK IN LINE THEY STORE CLOSED. I, SPOKE WITH HER THIS AM AND TOLD HER THAT I, WILL CALL [facility] AND GET A NAME OF WHO I SPOKE WITH AND WILL CALL HER BACK. IN THE MEANTIME NORMA SAID PT HAS A TOTAL OF 6 SCRIPTS 3 ARE OVER THE COUNTER (ASA, MIRALAX. DULCOLAX) AND PT TO BE ABLE TO COVER THE COST OF THESE MEDS, HOSPITAL WILL COVER THE OTHER 3 (CEFTIN, DICLOFENAC, DEXAMETHASONE). i, CALLED [facility] SPOKE WITH [place] AND SHE IS NOT AWARE OF THE HOSPITAL ACCOUNT OR WHAT HAPPENED LAST EVENING SHE IS GOING TO CALL HER PLUMBER ASSISTANT AND CALL ME BACK WILL CALL PT WITH NAME OF [facility] PHARMACIST TO TALK TO ONCE I HEAR BACK FROM THEM.
== END 2021-02-06 17:55 | disposition home or self-care (01) | DRG 177 ==
LOC: ER 09:02 → 3W 13:13 → EROBS 13:13 → 3W 13:57
PROVIDERS: Emergency Medicine; Nurse Practitioner; ADMIT Hospitalist; ATTEND Hospitalist
DX: U07.1 COVID-19 (principal); J12.82 Pneumonia due to coronavirus disease 2019; J96.01 Acute respiratory failure with hypoxia; K59.00 Constipation, unspecified; Z88.0 Allergy status to penicillin; Z88.8 Allergy status to other drugs, medicaments and biological substances
CPT/HCPCS: 10879

== ENCOUNTER → 2021-04-16 | Outpatient (CLI) | payer OTHER ==
[~2021-04-16] MED LIST changes: +ARTHRITIS PAIN100 GM TOP; +ASPIRIN EC325 M1 PO; +BENICAR40 MG PO; +CEFUROXIME500 MG PO; +DECADRON6 MG PO; +DULCOLAX5 MG PO; +EFFER-K 10 MEQ10 ME1 PO; +FUROSEMIDE 20 M20 MG PO; +LEVOFLOXACIN500 MG PO; +MIRALAX17 GM PO; +PROTONIX40 M2 PO
== END ==
LOC: ULTRA 13:37
PROVIDERS: ATTEND Family Medicine
DX: M17.12 Unilateral primary osteoarthritis, left knee (principal); M79.89 Other specified soft tissue disorders; R06.00 Dyspnea, unspecified; M25.462 Effusion, left knee

== ENCOUNTER 2021-04-17 14:59 | Inpatient (IN) | payer OTHER ==
[~2021-04-17] VITALS: Ht 175.3 cm; Wt 83.9 kg
[~2021-04-17 14:59] MED LIST changes: -BENICAR40 MG PO; -EFFER-K 10 MEQ10 ME1 PO; -FUROSEMIDE 20 M20 MG PO; -PROTONIX40 M2 PO
[2021-04-17 15:19] VITALS: BP 168/56
[2021-04-17 15:52] LABS: HEMATOCRIT 32.9 % (37.0-47.0); HEMOGLOBIN 10.7 gm/dL (12.0-15.0); MCH 28.8 pg (26.0-34.0); MCHC 32.6 g/dL (28.0-37.0); MCV 88.2 fL (80.0-100.0); RBC 3.73 mil/uL (4.20-5.00); RDW 15.2 % (10.5-14.5); WBC 5.5 thou/uL (4.0-11.0)
[2021-04-17 16:03] LABS: CALCIUM 8.8 mg/dL (8.5-10.1); POTASSIUM 3.8 mmol/L (3.5-5.1)
[2021-04-17 16:13] LABS: ALBUMIN 3.6 g/dL (3.4-5.0); MAGNESIUM 2.1 mg/dL (1.8-2.4); TOTAL BILIRUBIN 0.5 mg/dL (0.2-1.0); TOTAL PROTEIN 6.7 g/dL (6.4-8.2)
[2021-04-17 21:10] VITALS: BP 150/89
--- NOTE | 2021-04-17 21:51 | NUR ---
PT ADMITTED TO ROOM 211 AT AROUND 1999, PT IS HERE FOR CP, SB/PVCS NOTED ON TELE, DENIES CP, ADMISSION, ASSESSMENT, HX AND EDUCATION COMPLETED, MEDS GIVEN PER MAR, NO CONCERNS VOICED AT THIS TIME, WILL CONTINUE TO MONITOR
[2021-04-18 04:06] LABS: ABSOLUTE NEUTROPHILS 1.9 thou/uL (1.4-8.2); BASOPHILS 1.2 % (0.0-2.0); HEMATOCRIT 32.8 % (37.0-47.0); HEMOGLOBIN 10.7 gm/dL (12.0-15.0); LYMPHOCYTES 39.2 % (24.0-44.0); MCH 28.9 pg (26.0-34.0); MCHC 32.6 g/dL (28.0-37.0); MCV 88.7 fL (80.0-100.0); MONOCYTES 10.1 % (1.0-8.0); PLATELET COUNT 284 thou/uL (150-400); POLYS 47.5 % (36.0-66.0); RBC 3.69 mil/uL (4.20-5.00); RDW 15.5 % (10.5-14.5); WBC 3.9 thou/uL (4.0-11.0)
[2021-04-18 04:08] VITALS: BP 137/69
[2021-04-18 04:13] LABS: CALCIUM 8.6 mg/dL (8.5-10.1)
[2021-04-18 04:21] LABS: MAGNESIUM 2.3 mg/dL (1.8-2.4)
[2021-04-18] MEDS ORDERED: FUROSEMIDE 20 M20 MG PO (06:58)
[2021-04-18] MEDS ORDERED: EFFER-K 10 MEQ10 ME1 PO (06:59)
[2021-04-18 08:50] VITALS: BP 165/78
[2021-04-18] MEDS ORDERED: BENICAR40 MG PO (12:54)
[2021-04-18] MEDS ORDERED: PROTONIX40 M2 PO (12:54)
--- NOTE | 2021-04-18 13:36 | 2DMMODE ---
[facility] [place] [address] 2 D/M-MODE ECHOCARDIOGRAM Name: GARRETT JONES Room #: 211-P ADM IN M.R.#: [id number] Admission: 04/17/21 Attend Phys: Angel Luis Gamble MD Discharge: Date of : 56 Report #: [id number] THIS REPORT FOR: cc: Ira Carrasco MD, Nora P. MD Mancuso, Gerald M. MD [facility] ~ APPROVED REPORT Study performed: 04/18/2021 09:32:52 EXAM: Comprehensive 2D, Doppler, and color-flow Echocardiogram Patient Location: Bedside Room #: 211 Status: on-call BSA: 2.00 HR: 52 bpm BP: 165/78 mmHg Rhythm: NSR Other Information Study Quality: Adequate Indications Chest Pain 2D Dimensions IVSd: 14.14 (7-11mm) LVOT Diam: 21.00 (18-24mm) LVDd: 53.75 mm PWd: 14.83 (7-11mm) Ascending Ao: 37.86 (22-36mm) LVDs: 39.82 (25-40mm) Aortic Root: 30.21 mm LV Single Plane 4CH: 58.61 % LV Single Plane 2CH: 55.67 % Biplane EF: 55.7 % Volumes Left Atrial Volume (Systole) Single Plane 4CH: 77.72 mL Single Plane 2CH: 96.06 mL LA ESV Index: 45.00 mL/m2 Aortic Valve AoV Peak Raphael.: 1.73 m/s AO Peak Gr.: 11.96 mmHg LVOT Max P.77 mmHg LVOT Max V: 1.09 m/s [facility] [address] [place] [address] 2 D/M-MODE ECHOCARDIOGRAM Name: GARRETT JONES Room #: [facility].#: [id number] Admission: 04/17/21 Attend Phys: Angel Luis Gamble MD Discharge: Date of : 56 Report #: [id number] Vmax: 2.09 cm2 AI Vmax: 5.27 m/s AI Iroquois: 1.77 m/s2 AI PHT: 864.64 ms Mitral Valve E/A Ratio: 0.8 MV Decel. Time: 338.53 ms MV E Max Raphael.: 0.79 m/s MV A Raphael.: 1.02 m/s MV PHT: 98.17 ms IVRT: 96.89 ms TDI E/Lateral E': 15.80 E/Medial E': 13.17 Medial E' Raphael.: 0.06 m/s Lateral E' Raphael.: 0.05 m/s Pulmonary Valve PV Peak Raphael.: 0.84 m/s PV Peak Gr.: 2.79 mmHg Pulmonary Vein P Vein S: 0.51 m/s P Vein A: 0.23 m/s P Vein D: 0.35 m/s P Vein A Dur.: 114.2 msec P Vein S/D Ratio: 1.46 Tricuspid Valve TR Peak Raphael.: 2.34 m/s RAP Estimate: 7.00 mmHg TR Peak Gr.: 21.85 mmHg PA Pressure: 29.00 mmHg Left Ventricle The left ventricle is normal size. There is normal LV segmental wall motion. There is normal left ventricular wall thickness. Left ventricular systolic function is normal. The left ventricular ejection fraction is within the normal range. LVEF is 55-60%. Mild diastolic dysfunction is present (impaired relaxation pattern). Right Ventricle The right ventricle is normal size. The right ventricular systolic function is normal. Atria Left atrium is moderately dilated. Right atrium is dilated. [address] [address] 2 D/M-MODE ECHOCARDIOGRAM Name: JULIO CESAR BIRCHGARRETT Room #: 211-P [facility] IN [facility]#: [id number] Admission: 04/17/21 Attend Phys: Angel Luis Gamble MD Discharge: Date of : 56 Report #: [id number] Aortic Valve The Aortic valve is mildly sclerotic. Mild aortic regurgitation. There is no aortic valvular stenosis. Mitral Valve The mitral valve is normal in structure. Mild to moderate mitral regurgitation. No evidence of mitral valve stenosis. Tricuspid Valve The tricuspid valve is normal in structure. Trace tricuspid regurgitation. Pulmonary artery pressure is 29 mmHg. Pulmonic Valve The pulmonary valve is normal in structure. There is no pulmonic valvular regurgitation. Great Vessels The aortic root is normal in size. The ascending aorta is mildly dilated to 3.8 cm. IVC is normal in size and collapses >50% with inspiration. Pericardium There is no pericardial effusion. <Conclusion> The left ventricle is normal size. LVEF is 55-60%. Mild diastolic dysfunction is present (impaired relaxation pattern). The right ventricle is normal size. Left atrium is moderately dilated. Right atrium is dilated. The Aortic valve is mildly sclerotic. Mild aortic regurgitation. Mild to moderate mitral regurgitation. Trace tricuspid regurgitation. Pulmonary artery pressure is 29 mmHg. The aortic root is normal in size. The ascending aorta is mildly dilated to 3.8 cm. There is no pericardial effusion. <ELECTRONICALLY SIGNED> By: Darius Valladares MD, FACC 04/18/21 1335 1335 1335 Darius Valladares MD, FACC /INF
[2021-04-18 14:06] VITALS: BP 165/78
--- NOTE | 2021-04-18 14:10 | EKG ---
[address] [place] [address] ELECTROCARDIOGRAM REPORT Name: GARRETT JONES Room #: 211- ADM IN M.R.#: [id number] Admission: 04/17/21 Attend Phys: Angel Luis Gamble MD Discharge: Date of : 56 Report #: [id number] [facility] Test Date: 2021-04-18 Test Time: 09:10:54 Pat Name: GARRETT BIRCH Department: Room: 211 P Gender: F Semaphore Operator: VIJAYA : 1960 Requested By: Darius Valladares Order Number: [id number] MD: Trevor Potts Measurements Intervals [place] Rate: 50 P: 34 DC: 196 QRS: 3 QRSD: 95 T: 131 QT: 478 QTc: 436 Interpretive Statements Sinus rhythm Abnormal R-wave progression, late transition NS st/T wave changes, consider ischemia Compare to ECG 04/16/2021 at 15:17 PVC no longer present Electronically Signed On 04-18-2021 14:10:34 ANIMAL CARE SPECIALIST by Trevor Potts [email or web address] <ELECTRONICALLY SIGNED> By: Trevor Potts MD 04/18/21 1410 0910 0910 Trevor Potts MD /EPI
--- NOTE | 2021-04-18 15:17 | NUR ---
ASSUMED CARE OF PATIENT AT 0700. DENIES ANY CP OR SOA. RESTING COMFORTABLY IN BED WITH CALL LIGHT. PT UP AD JODY. SB TO SR ON TELE. EKG & ECHO PERFORMED. DISCHARGE PAPERWORK REVIEWED AND SIGNED. TELE AND IV REMOVED. PATIENT TAKEN VIA WHEELCHAIR TO HER LOCKER TO GET HER COAT AND THEN TO THE PARKING LOT. PATIENT DROVE HERSELF HOME. PATIENT STATES THAT SHE FEELS BETTER THAN SHE DID UPON ADMISSION.
--- NOTE | 2021-04-20 07:51 | EKG ---
[address] [place] [place] [address] ELECTROCARDIOGRAM REPORT Name: GARRETT JONES Room #: 211-P [facility] IN ..#: [id number] Admission: 04/17/21 Attend Phys: Angel Luis Gamble MD Discharge: 04/18/21 Date of : 56 Report #: [id number] ED Test Date: 2021-04-17 Test Time: 15:17:15 Pat Name: GARRETT BIRCH Department: Room: [facility] Gender: F Multi Line Claims Adjuster: ramon : 1960 Requested By: Diana Maddox Order Number: [id number] MD: Chavez Bernard Measurements Intervals [place] Rate: 58 P: 36 [place]: 197 QRS: 8 QRSD: 93 T: 137 QT: 439 QTc: 432 Interpretive Statements Sinus bradycardia Ventricular premature complex Nonspecific T abnrm Baseline wander in lead(s) V3 Compared to ECG 02/03/2021 09:19:33 No significant change was found Electronically Signed On 04-20-2021 7:50:50 SUPERVISOR DELIVERY DEPARTMENT by Chavez Bernard [email or web address] <ELECTRONICALLY SIGNED> By: Chavez Bernard MD, [facility] 04/20/21 0750 1517 1517 Chavez Bernard MD, [facility] /EPI
--- NOTE | 2021-04-21 14:08 | HC ---
[facility] [place] [address] CONSULTATION Name: GARRETT JONES Room #: 211-P [facility] IN M.R.#: [id number] Admission: 04/17/21 Attend Phys: Angel Luis Gamble MD Discharge: 04/18/21 Date of : 56 Report #: [id number] THIS REPORT FOR: cc: Ira Carrasco MD, Nora P. MD [facility] AssociationD[facility] MD 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 She was coming off of her shift today, significant onset of substernal chest discomfort associated with some mild shortness of breath. She does not have documented coronary artery disease. Recently started on Lasix this morning for some lower extremity edema. She has not had any stress test or cardiac eval, she was scheduled and did not make her appointment. The entire episode took approximately 20 minutes and it was substernal and slightly epigastric. She denies any change in her diet or any eating late, spicy or greasy. She has never had any GI history before. HOME MEDICATIONS: Diclofenac gel, dexamethasone for swollen knee I believe was recently added, Lasix 20, potassium 10, Dulcolax p.r.n. ALLERGIES: CODEINE, LEVAQUIN, AND PENICILLIN. IMAGING: Her EKG is sinus rhythm, sinus jenniffer with T-wave inversions noted laterally. Chest x-ray is unremarkable. LABORATORY DATA: Sodium 140, potassium 3.8, creatinine 1.0. Normal liver function tests. H and H is 10.[address] scan of the chest was no evidence of PE. Borderline cardiomegaly, mildly dilated pulmonary arteries, some question of possible mild vascular congestion. The chest x-ray did show some mild atelectasis. SOCIAL HISTORY: She lost her 4 years ago. She does have children, but they are not in town. She works in [employer]. There is no alcohol or tobacco use. FAMILY HISTORY: Sister had coronary stents, 9 in total, so there is premature disease. PAST MEDICAL HISTORY: Positive for some borderline hypertension, left shoulder tendinitis, left lower extremity swelling, renal cyst, left ovarian cyst, uterine fibroid. PHYSICAL EXAMINATION: GENERAL: She is alert. She is pleasant. She is in no distress. [facility] [address] [place] [address] CONSULTATION Name: GARRETT JONES Room #: 211-P [facility] IN [facility]#: [id number] Admission: 04/17/21 Attend Phys: Angel Luis Gamble MD Discharge: 04/18/21 Date of : 56 Report #: [id number] VITAL SIGNS: Pulse is 58. Blood pressure 136/80. EYES: Reveal xanthelasmas. Pharynx is clear. NECK: Shows preserved upstrokes without JVD or bruits. LUNGS: Clear. HEART: Regular rate and rhythm, S1, S2. ABDOMEN: Soft. No HSM or abdominal bruit. EXTREMITIES: Reveal no edema. Pulses diminished, but intact. NEUROLOGIC: Nonfocal. SKIN: Warm and dry without xanthoma or ulcer. MUSCULOSKELETAL: No gross joint deformity. ASSESSMENT: 1. Chest pain, unclear etiology, possible angina. 2. Borderline hypertension. 3. Strong family history of premature coronary disease. 4. Hypercholesterolemia. 5. Prior tobacco use. 6. Anemia. RECOMMENDATIONS AND PLAN: Serial EKGs and troponin, CCU overnight, heart healthy diet. She is pain-free, currently holding on and borderline bradycardic, so no indication for nitro or beta jae at this time. We will consider stress testing versus cardiac catheterization depending on a.m. labs and EKG. The T-wave inversions laterally are concerning. I do not have an old one for comparison and we will check with Dr. Carrasco' office and will follow with you. Thank you for allowing me to assist in the care of this patient. <ELECTRONICALLY SIGNED> By: Darius Valladares MD, FACC 04/21/21 1408 1643 19 Darius Valladares MD, FACC /nt
== END 2021-04-18 14:38 | disposition home or self-care (01) | DRG 313 ==
LOC: ER 14:59 → EROBS 17:36 → 2N 20:47
PROVIDERS: Nurse Practitioner; Nurse Practitioner Family; ADMIT Internal Medicine; ATTEND Internal Medicine
DX: R07.89 Other chest pain (principal); I25.119 Atherosclerotic heart disease of native coronary artery with unspecified angina pectoris; E78.00 Pure hypercholesterolemia, unspecified; N28.1 Cyst of kidney, acquired; D64.9 Anemia, unspecified; D25.9 Leiomyoma of uterus, unspecified; R03.0 Elevated blood-pressure reading, without diagnosis of hypertension; F43.9 Reaction to severe stress, unspecified; R60.0 Localized edema; Z20.822 Contact with and (suspected) exposure to COVID-19; Z79.899 Other long term (current) drug therapy; Z79.82 Long term (current) use of aspirin; Z88.1 Allergy status to other antibiotic agents; Z88.5 Allergy status to narcotic agent; Z88.0 Allergy status to penicillin; Z82.49 Family history of ischemic heart disease and other diseases of the circulatory system; Z86.16 Personal history of COVID-19; Z87.891 Personal history of nicotine dependence
CPT/HCPCS: 10081

== ENCOUNTER → 2021-04-21 | Outpatient (CLI) | payer OTHER ==
[~2021-04-21] MED LIST changes: +BENICAR40 MG PO; +EFFER-K 10 MEQ10 ME1 PO; +FUROSEMIDE 20 M20 MG PO; +PROTONIX40 M2 PO; +PROTONIX40 M4 PO
== END ==
LOC: SJCVC 12:21 → SJCVCIMAG 14:57
PROVIDERS: ATTEND Internal Medicine Cardiovascular Disease
DX: I08.3 Combined rheumatic disorders of mitral, aortic and tricuspid valves (principal); R06.00 Dyspnea, unspecified; I10 Essential (primary) hypertension; E78.5 Hyperlipidemia, unspecified; Z87.891 Personal history of nicotine dependence; Z72.89 Other problems related to lifestyle; Z88.0 Allergy status to penicillin; Z88.5 Allergy status to narcotic agent; Z79.899 Other long term (current) drug therapy

== ENCOUNTER → 2021-05-07 | Outpatient (CLI) | payer OTHER | LOC: LAB 05-06 16:13 | PROVIDERS: ATTEND Student in an Organized Health Care Education/Training Program | DX: Z20.822 Contact with and (suspected) exposure to COVID-19 (principal) ==

== ENCOUNTER → 2021-05-08 | Outpatient (CLI) | payer OTHER ==
[~2021-05-08] VITALS: Ht 177.8 cm; Wt 79.4 kg
--- NOTE | 2021-05-13 12:00 | P ---
[facility] [place] [address] PROCEDURE REPORT Name: GARRETT JONSE Room #: REG OZ DislaCandiceMendyCandice#: [id number] Admission: 05/08/21 Attend Phys: Deon Reardon Discharge: Date of : 56 Report #: [id number] THIS REPORT FOR: cc: Ira Carrasco MD, Nora P. MD McElhinney, Christian C. MD ~ cc: Ira Carrasco MD DATE OF SERVICE: 05/08/2021 PROCEDURE PERFORMED: Colonoscopy. HISTORY OF PRESENT ILLNESS: The patient is a 60-year-old female with a history of colon polyps, last colonoscopy in 2013. She denies any symptoms at this time. She was hospitalized for COVID, at that time was having nausea, vomiting and left lower quadrant abdominal pain. CT scan of the abdomen and pelvis was essentially negative at that time. She denies any further symptoms, no family history of colon cancer. DESCRIPTION OF PROCEDURE: The risks and benefits of the procedure were explained to the patient, those risks including but not limited to bleeding, perforation and the risk of sedation. She understood these risks and gave informed consent. Sedation was given using propofol per anesthesia. Next, a digital rectal exam was initially performed, which was normal. Next, using a standard Olympus colonoscope, scope was placed in the patient's anus and advanced under direct vision to the cecum. The overall prep was fair in areas. Multiple washings and aspirations were performed. Most areas were fairly well visualized. The cecum and ileocecal valve were normal in appearance. The ascending, transverse, descending and sigmoid colon were all normal. The rectal mucosa was normal. On retroflexion, no abnormalities were noted. The scope was then withdrawn and the procedure terminated. The patient tolerated the procedure well. IMPRESSION: 1. Fair prep in areas which did limit visualization. 2. Normal colonoscopy. RECOMMENDATIONS: Repeat colonoscopy in 5 years due to fair prep in areas. Thank you for allowing me to participate in her care. <ELECTRONICALLY SIGNED> By: Deon Olmedo MD 05/13/21 1200 0932 1216 Deon Olmedo MD /nt
== END | disposition home or self-care (01) ==
LOC: GI 06:53
PROVIDERS: ATTEND Specialist
DX: Z12.11 Encounter for screening for malignant neoplasm of colon (principal); Z86.010 Personal history of colon polyps; I10 Essential (primary) hypertension; Z98.890 Other specified postprocedural states; Z79.899 Other long term (current) drug therapy; Z20.822 Contact with and (suspected) exposure to COVID-19; Z88.0 Allergy status to penicillin; Z88.6 Allergy status to analgesic agent; Z91.040 Latex allergy status
CPT/HCPCS: 62110; 62900